=== PATIENT | female | born 1985 | race Caucasian/White ===

== ENCOUNTER 2018-02-24 17:29 | Emergency (ER) | payer OTHER ==
[~2018-02-24] VITALS: Ht 152.4 cm; Wt 74.8 kg
[~2018-02-24 17:29] MED LIST: ALBUTEROL2.5 MG/0.1 INH; AZITHROMYCIN 2250 MG PO; BACTRIM DS TAB1 EACH PO; BACTROBAN15 GM TP; BENTYL20 MG PO; CIPROFLOXACIN500 M1 PO; CLEOCIN HCL300 MG PO; DILAUDID2 M1 PO; FLAGYL500 MG PO; FLOMAX PO; KEFLEX500 MG PO; LEXAPRO20 MG; NAPROSYN500 MG PO; NOHOMEMEDICATIONS; PEPCID40 MG PO; PREDNISONE 20 M20 MG PO; PRENATA CHEWAB1 EACH PO; SINGULAIR 10 MG10 M1 PO; ULTRAM 50MG TAB50 MG PO; ZANTAC 150MG T150 M1 PO; ZOFRAN ODT4 MG PO; ZOFRAN4 MG PO
[2018-02-24 17:54] LABS: URINE BILIRUBIN NEGATIVE (Negative); URINE BLOOD 3+ (Negative); URINE CLARITY CLEAR; URINE COLOR YELLOW; URINE GLUCOSE-RANDOM NEGATIVE (Negative); URINE KETONES NEGATIVE (Negative); URINE LEUKOCYTES-REFLEX NEGATIVE (Negative); URINE NITRITE-REFLEX NEGATIVE (Negative); URINE PROTEIN NEGATIVE (Negative); URINE UROBILINOGEN 0.2 E.U./dl (0.2-1.0)
[2018-02-24 17:54] LABS: ABSOLUTE LYMPHOCYTES 2.7 thou/uL (0.8-5.3); MCHC 31.9 g/dL (28.0-37.0); NUCLEATED RBCS 0 /100WBC; RBC 4.19 mil/uL (4.20-5.00)
[2018-02-24 17:56] LABS: ABSOLUTE BASOPHILS 0.1 thou/uL (0.0-0.2); ABSOLUTE EOSINOPHILS 0.6 thou/uL (0.0-0.7); ABSOLUTE MONOCYTES 0.7 thou/uL (0.0-1.2); ABSOLUTE NEUTROPHILS 6.8 thou/uL (1.6-8.1); BASOPHILS 1.3 %; EOSINOPHILS 5.1 %; HEMATOCRIT 34.5 % (37.0-47.0); LYMPHOCYTES 24.8 %; MCH 26.3 pg (26.0-34.0); MCV 82.5 fL (80.0-100.0); MONOCYTES 6.3 %; MPV 7.6 fl. (7.2-11.1); PLATELET COUNT* 385 thou/uL (150-400); POLYS 62.5 %; RDW-CV 15.2 % (10.5-14.5); WBC 10.9 thou/uL (4.0-11.0)
[2018-02-24 18:01] LABS: CALCIUM 8.4 mg/dL (8.5-10.1); CREATININE 0.8 mg/dL (0.6-1.3); POTASSIUM 3.8 mmol/L (3.5-5.1)
[2018-02-24 18:03] LABS: BACTERIA-REFLEX 1-9 Few /HPF (None Seen); CASTS None Seen /LPF (None Seen); CRYSTALS None Seen /LPF (None Seen); SQUAMOUS >10 Many /LPF (0-3); URINE WBC-REFLEX 0-5 Rare /HPF (0-5)
[2018-02-24 18:06] LABS: ALBUMIN 3.3 g/dL (3.4-5.0); TOTAL BILIRUBIN 0.1 mg/dL (<0.1-1.0); TOTAL PROTEIN 7.2 g/dL (6.4-8.2)
[2018-02-24] MEDS ORDERED: ZOFRAN ODT4 MG PO (21:03)
[2018-02-24 21:14] VITALS: BP 124/73
== END 2018-02-24 21:15 | disposition home or self-care (01) ==
LOC: M.ERS 17:29
PROVIDERS: Physician Assistant Surgical
DX: R10.11 Right upper quadrant pain (principal); G43.909 Migraine, unspecified, not intractable, without status migrainosus; J45.909 Unspecified asthma, uncomplicated; N80.9 Endometriosis, unspecified; Z88.6 Allergy status to analgesic agent; Z88.1 Allergy status to other antibiotic agents; Z88.5 Allergy status to narcotic agent; Z87.442 Personal history of urinary calculi